=== PATIENT | female | born 1975 | race Caucasian/White ===

== ENCOUNTER 2017-05-07 16:17 | Emergency (ER) | payer SELFPAY ==
[~2017-05-07] VITALS: Ht 160 cm; Wt 52.2 kg
[2017-05-07 16:19] VITALS: BP 135/86
[2017-05-07] MEDS ORDERED: NKM (16:24)
[2017-05-07] MEDS ORDERED: Meclizine 25mg tab ORAL ONE (16:30)
[2017-05-07] MEDS ORDERED: Acetaminophen 500mg (ES) tab ORAL ONE (17:00)
[2017-05-07 18:30] VITALS: BP 110/70
[2017-05-07 19:15] VITALS: BP 118/70
[2017-05-07 19:52] LABS: BASOPHILS % (AUTO) 0.7 % (0.0-2.0); EOSINOPHILS % (AUTO) 1.3 % (0.0-3.0); LYMPHOCYTES % (AUTO) 22.5 % (20.0-45.0); MEAN CORPUSCULAR HEMOGLOBIN 30.4 PG (27.0-31.0); MEAN CORPUSCULAR VOLUME 84 FL (80-99); MEAN PLATELET VOLUME 5.8 FL (6.5-10.1); NEUTROPHILS % (AUTO) 67.6 % (45.0-75.0); PLATELET COUNT 426 K/UL (150-450); RED BLOOD COUNT 3.97 M/UL (4.20-5.40); RED CELL DISTRIBUTION WIDTH 11.7 % (11.6-14.8)
[2017-05-07] MEDS ORDERED: MECLIZINE HCL25 MG ORAL (19:54)
[2017-05-07] MEDS ORDERED: VALIUM5 MG ORAL (19:54)
[2017-05-07 20:22] VITALS: BP 118/70
[2017-05-07 20:28] LABS: ALANINE AMINOTRANSFERASE 23 U/L (3-33); ALBUMIN/GLOBULIN RATIO 1.9 (1.0-2.7); ANION GAP 12 (5-15); ASPARTATE AMINO TRANSFERASE 16 U/L (5-40); CALCIUM 8.6 mg/dL (8.6-10.2); CARBON DIOXIDE 24 mEQ/L (20-30); CHLORIDE 102 mEQ/L (98-107); CREATININE 0.9 mg/dL (0.5-0.9); GLOMERULAR FILTRATION RATE > 60 mL/min (>60); HEMOLYSIS 2; POTASSIUM 3.6 mEQ/L (3.4-4.9); SODIUM 138 mEQ/L (135-145); TOTAL PROTEIN 6.1 g/dL (6.6-8.7)
--- NOTE | 2017-05-08 10:03 | Diagnostic Imaging Report ---
Indication: Dizziness and headache Technique: Contiguous 5 mm thick transaxial imaging of the head obtained in a Siemens Sensation [address] scanner. Soft tissue and bone windows generated. Total Dose length Product (DLP): [address] Dose Index Volume (CTDIvol): 70.38, 0.15 mGy Comparison: none Findings: The size and configuration of the cortical sulci, basal cisterns, and ventricles are within normal limits for age. There is no mass effect, midline shift, or edema identified. There is no evidence of acute hemorrhage or abnormal intra-axial or extra-axial fluid collections. The bones and soft tissues are unremarkable. Impression: No mass effect, edema or acute bleed. The CT scanner at [facility] is accredited by the [employer] and the scans are performed using dose optimization techniques as appropriate to a performed exam including Automatic Exposure control.
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
== END 2017-05-07 20:22 | disposition home or self-care (01) ==
LOC: EDBD 16:17 → EMR 17:00
DX: S09.90XA Unspecified injury of head, initial encounter (principal); X58.XXXA Exposure to other specified factors, initial encounter; Y93.9 Activity, unspecified; Y92.89 Other specified places as the place of occurrence of the external cause; R42 Dizziness and giddiness; R51 Headache; Z88.2 Allergy status to sulfonamides
CPT/HCPCS: 36415; 70450; 80053; 85025; 99284; J2405